=== PATIENT | female | born 1955 | race African-American/Black ===

== ENCOUNTER 2019-04-23 13:51 | Emergency (ER) | payer MEDICAID, MEDICARE ==
[~2019-04-23] VITALS: Ht 152.4 cm; Wt 77.0 kg
[~2019-04-23 13:51] MED LIST: ABILIFY; IBUP200C5 PO; TRAM200T31 PO
[2019-04-23 15:04] VITALS: BP 116/63
== END 2019-04-23 15:06 | disposition home or self-care (01) ==
LOC: ER 13:51
DX: T16.2XXA Foreign body in left ear, initial encounter (principal); Z88.6 Allergy status to analgesic agent; Z88.5 Allergy status to narcotic agent; Z79.899 Other long term (current) drug therapy; X58.XXXA Exposure to other specified factors, initial encounter; Y93.89 Activity, other specified; Y92.89 Other specified places as the place of occurrence of the external cause; Y99.8 Other external cause status
CPT/HCPCS: 99281

== ENCOUNTER 2023-02-25 09:52 | Emergency (ER) | payer MEDICARE, MEDICAID ==
[~2023-02-25] VITALS: Ht 165.1 cm; Wt 80.0 kg
[~2023-02-25 09:52] MED LIST changes: -TRAM200T31 PO; +[UNRECOGNIZED DRUG - CODE] PO
[2023-02-25 09:56] VITALS: TEMP 98.2; O2SAT 97
[2023-02-25] MEDS ORDERED: SODIUM CHLORIDE 0.9% 1,000 ML IV ONE (10:15)
[2023-02-25 10:34] LABS: BASOPHILS % 0.6 % (0.0-2.0); EOSINOPHILS % 0.7 % (0.0-5.0); HEMATOCRIT. 44.3 % (36.0-48.0); HEMOGLOBIN. 14.5 g/dL (12.0-16.0); LYMPHOCYTES % 22.5 % (20.0-50.0); MEAN CORPUSCULAR HEMOGLOBIN 31.2 pg (28.0-32.0); MEAN CORPUSCULAR HGB CONC 32.7 g/dL (31.0-37.0); MEAN CORPUSCULAR VOLUME 95.5 fL (81.0-99.0); MEAN PLATELET VOLUME 8.5 fl (7.4-10.4); MONOCYTES % 3.6 % (2.0-8.0); NEUTROPHILS % 72.6 % (40.0-76.0); PLATELET 308 x1000/uL (130-400); RED BLOOD CELL COUNT 4.64 mill/uL (4.2-5.4); RED CELL DISTRIBUTION WIDTH 14.3 % (11.6-14.6); WHITE BLOOD COUNT 5.8 x1000/uL (4.5-11.0)
[2023-02-25 10:47] LABS: CHLORIDE 105 mEq/L (98-107); INDEX HEMOLYSI 1 (1-3); INDEX ICTERIC 1 (1-4); INDEX LIPEMIC 1 (1-3); POTASSIUM 3.7 mEq/L (3.5-5.1); SODIUM 139 mEq/L (136-145)
[2023-02-25 10:55] LABS: ALANINE AMINOTRANSFERASE 47 IU/L (13-61); ALBUMIN 3.2 g/dL (3.4-5.0); ASPARTATE AMINOTRANSFERASE 22 IU/L (15-37); BILIRUBIN TOTAL 0.5 mg/dL (0.1-1.0); CALCIUM 9.5 mg/dL (8.5-10.1); CARBON DIOXIDE 27 mEq/L (21-32); GLUCOSE 200 mg/dL (70-105); PROTEIN TOTAL 7.4 g/dL (6.0-8.3); UREA NITROGEN BLOOD 13 mg/dL (7-21)
[2023-02-25 13:09] VITALS: BP 130/79; PULSE 79; RESP 14
== END 2023-02-25 13:10 | disposition home or self-care (01) ==
LOC: ER 09:52
DX: R42 Dizziness and giddiness (principal); Z88.6 Allergy status to analgesic agent; Z88.5 Allergy status to narcotic agent; Z86.59 Personal history of other mental and behavioral disorders
CPT/HCPCS: 99284; 96360; 80053; 85025; 36415; 93005; J7030

== ENCOUNTER 2024-05-19 09:38 | Emergency (ER) | payer BC, MEDICAID, MEDICARE ==
[~2024-05-19] VITALS: Ht 165.1 cm; Wt 81.6 kg
[2024-05-19 09:40] VITALS: O2SAT 100
[2024-05-19 09:43] VITALS: BP 148/89; PULSE 103; RESP 16; TEMP 36.8; O2SAT 98
[2024-05-19] MEDS ORDERED: PRED5DRO22 LEFTEYE (10:14)
== END 2024-05-19 10:53 | disposition home or self-care (01) ==
LOC: ER 09:56
DX: H10.12 Acute atopic conjunctivitis, left eye (principal); F20.9 Schizophrenia, unspecified; M19.90 Unspecified osteoarthritis, unspecified site; Z88.5 Allergy status to narcotic agent
CPT/HCPCS: 99283